=== PATIENT | female | born 1955 | race Caucasian/White ===

== ENCOUNTER → 2018-06-11 13:43 | Outpatient (CLI) | payer BC | END | disposition home or self-care (01) | LOC: D.MRI 13:43 | DX: M75.102 Unspecified rotator cuff tear or rupture of left shoulder, not specified as traumatic (principal) ==

== ENCOUNTER 2020-12-07 07:53 | Day surgery (SDC) | payer MEDICARE ==
[~2020-12-07] VITALS: Ht 157.5 cm; Wt 62.1 kg
[~2020-12-07 07:53] MED LIST: AMABELZ 1 MG-01 EACH PO; CAL-MAG-ZINC PO; CENTRUM SILVER1 EAC3 PO; COZAAR100 MG PO; DILTIAZEM 24HR120 M3 PO; L-LYSINE PO; MELATONIN10 M1 PO; NATROL 5-HTP50 MG PO; OMEGA-3100 MG PO; RED YEAST RICE600 MG PO; ZOLPIDEM PO
[2020-12-07 08:34] LABS: BASOPHILS 1.1 % (0-2); EOSINOPHILS 2.2 % (0-7); HEMATOCRIT 39.6 % (36.0-48.0); HEMOGLOBIN 13.4 g/dL (12-16); LYMPHOCYTES 29.3 % (15-50); MCH 30.3 pg (26.0-34.0); MCHC 33.9 g/dL (31.0-37.0); MCV 89.4 fL (80.0-100.0); MONOCYTES 11.6 % (2-11); NEUTROPHILS 55.8 % (40-80); PLATELET COUNT 335 10x3/uL (130-400); RBC 4.43 10x6/uL (4.00-5.40); RDW 16.4 % (11.5-14.5); WBC 8.9 10x3/uL (4.8-10.8)
[2020-12-07 08:38] LABS: ANION GAP 11.6 mmol/L (8-16); CALCIUM 8.6 mg/dL (8.5-10.1); CARBON DIOXIDE 23.4 mmol/L (21.0-32.0); CREATININE - SERUM 1.1 mg/dL (0.6-1.3)
[2020-12-07 08:50] VITALS: BP 163/81; Ht 157.5 cm; Wt 62.1 kg
--- NOTE | 2020-12-07 09:22 | NUR ---
REGUSED VALIUM AND TRANSDERM NITRO PATCH PREOP
--- NOTE | 2021-01-04 09:27 | OP ---
PATIENT NAME: ASAEL SANDERSON MEDICAL RECORD: [id number] :55 LOCATION:D[facility] ADMISSION DATE: SURGEON: MATILDA CALDERÓN MD DATE OF OPERATION: 12/07/2020 PREOPERATIVE DIAGNOSIS: Symptomatic gallstones. POSTOPERATIVE DIAGNOSIS: Symptomatic gallstones. No hepatomegaly. PROCEDURES: 1. Laparoscopic cholecystectomy. 2. Intraoperative cholangiography without immediate surgeon interpretation. SURGEON: Matilda Calderón MD TEXTILE EXAMINER: None. BLOOD LOSS: Please see the anesthesia sheet. OPERATIVE COURSE: The patient was conveyed to the operating room electively on 12/07/2020. General anesthesia was induced by the anesthesia staff. The abdomen was sterilely prepped and draped. A small skin incision was accomplished in the left upper quadrant. Veress needle was inserted through the skin incision into the peritoneal cavity. CO2 insufflation was begun. Once a sufficient pneumoperitoneum had been achieved, a 5-mm trocar was inserted. Under direct internal vision utilizing a television camera, a 12-mm trocar was inserted at the umbilicus. Another 5-mm trocar was inserted to the right of midline and another 5-mm trocar was inserted far laterally in the right upper quadrant. During insertion of the Veress needle and all trocars, there appeared to have been no injury to the bowels, any intraperitoneal or retroperitoneal structures. Abdominal survey was undertaken. No hepatomegaly was identified. I saw no evidence of fatty liver disease. The gallbladder was grasped. I advanced the cholangiogram trocar. I punctured the fundus of the gallbladder. I aspirated bile. I then injected dye. Under real time cholangiography, static fluoroscopic images were obtained. These are cholangiographic images that were sent to the radiologist for interpretation. The cholangiogram trocar was removed. The gallbladder was grasped and retracted cephalad. The infundibulum was grasped and retracted laterally. Blunt dissection was begun in the triangle of Calot. One cystic artery and one cystic duct were identified. These were clipped multiply and divided between clips. The gallbladder was then excised from its bed in the liver. It was placed within a bag retrieval device and was withdrawn through the umbilical fascial defect. A 12-mm trocar was replaced and the abdomen reinsufflated. I irrigated and aspirated in the right upper quadrant. There was no bleeding even at low pressure of 8. The 12-mm trocar was removed. Utilizing a Javad-Frieda suture closure device and 0 Vicryl sutures, the fascia at the umbilicus was closed. The other trocars were removed. OPERATIVE REPORT [id number] ASAEL SANDERSON The skin at the umbilicus was closed with interrupted 4-0 Vicryl Rapide sutures. The other skin incisions were closed with interrupted intracuticular 3-0 Vicryls. Benzoin and Steri-Strips were applied. The patient was then extubated and conveyed to post-anesthesia care unit where she was in stable condition. TRANSINT:[id number] Voice Confirmation ID: [id number] DOCUMENT ID: [id number] MATILDA CALDERÓN MD at 0927 CC: [id number] DICTATION DATE: 01/04/21607 RESEARCH HYDROLOGIST: 01/04/21 0824 [facility] 12/07/[address] [id number]
== END 2020-12-07 14:50 | disposition home or self-care (01) ==
LOC: D.OPS 07:53
PROVIDERS: Anesthesiology; ATTEND Surgery
DX: K80.20 Calculus of gallbladder without cholecystitis without obstruction (principal); I10 Essential (primary) hypertension; R74.01 Elevation of levels of liver transaminase levels; R19.5 Other fecal abnormalities